=== PATIENT | female | born 1980 | race Caucasian/White ===

== ENCOUNTER → 2016-09-19 | Outpatient (CLI) | payer BC ==
[~2016-09-19] MED LIST: CITA20TA12 PO; FAMO-115 PO; HYDR-3702 PO; HYDR-3754 PO; INDM25C PO; METH20TA PO; NF-TORA10 PO; PANT20TA2 PO; PRM25T PO; SUCR1TAB29 PO; TRM50T PO
--- NOTE | 2016-09-19 15:56 | Diagnostic Imaging Report ---
EXAM: BARIUM ENEMA INDICATION: Rectovaginal fistula on physical examination. COMPARISON: None. FINDINGS: Water-soluble contrast was administered via the rectum using an inflatable tip catheter. The rectum was distended well. However, a rectovaginal fistula was not identified. Suspecting that the inflatable tip of the catheter may be overlying the fistula, the tip was deflated and the rectum was again distended well with contrast. The patient was able to retain this contrast well for several minutes. A rectovaginal fistula was still not identified. Reflux of contrast throughout the colon to the terminal ileum demonstrates normal mucosal pattern with no filling defects. A normal-caliber appendix was identified. No diverticula. IMPRESSION: A rectovaginal fistula could not be identified despite adequate distention of the rectum, both with and without inflation of the rectal catheter. If clinically warranted, contrast could be administered into the vaginal canal to see if it passes into the rectum. This exam could not immediately be performed due to the residual contrast in the rectum. Dictated by: Dictated on workstation # [id number]
== END ==
LOC: RAD 09:32
PROVIDERS: ATTEND Family Medicine
DX: R10.32 Left lower quadrant pain (principal); N82.3 Fistula of vagina to large intestine
CPT/HCPCS: 74270

== ENCOUNTER → 2016-10-03 | Outpatient (CLI) | payer BC ==
--- NOTE | 2016-10-03 11:47 | Diagnostic Imaging Report ---
PROCEDURE: CT abdomen and pelvis with and without contrast. TECHNIQUE: Precontrast acquisitions were acquired through the abdomen and pelvis. Multiple contiguous axial images were obtained through the abdomen and pelvis after the administration of intravenous contrast. INDICATION: Rectovaginal fistula. AVAILABLE COMPARISONS: None FINDINGS: The liver and spleen are negative. The gallbladder is surgically absent. The adrenal glands and pancreas are negative. The kidneys are negative. The aorta is unremarkable. There are no pathologically enlarged lymph nodes in the abdomen. Images through the pelvis show the uterus to be surgically absent. There is no pelvic mass or lymphadenopathy. There is no bowel wall thickening, free air, or free fluid. The terminal ileum and appendix are within normal limits. There is no evidence for diverticulitis or diverticula formation. A surgical clip is visible in the left lower quadrant. There is an asymmetrically prominent vessel in the posterior right aspect of the vagina. No fistulas identified. Urinary bladder is unremarkable. Bone island is present in the left iliac bone. IMPRESSION: 1. Mildly prominent vascular structure at the posterior right aspect of the vagina. No fistula or other significant abnormality is identified. Dictated by: Dictated on workstation # [id number]
== END ==
LOC: RAD 09:21
PROVIDERS: ATTEND Family Medicine
DX: N82.3 Fistula of vagina to large intestine (principal)
CPT/HCPCS: 74178; Q9967